=== PATIENT | female | born 1965 | race Caucasian/White ===

== ENCOUNTER → 2017-02-27 | Outpatient (CLI) | payer OTHER ==
--- NOTE | 2017-02-27 11:41 | MR ---
MR thoracic and lumbar spine without contrast HISTORY: Degeneration of the lumbar spine, thoracic spine Multiplanar multisequence imaging obtained through the thoracic lumbar spine correlated to prior thor acic spine dated 01/10/2016, prior lumbar spine MRI 09/16/2015 Thoracic spine MRI: There is a mild spinal curvature. Thoracic vertebral bodies show preserved height , alignment, and bone marrow signal. There is multilevel spondylosis. No significant foraminal encroa chment or significant central stenosis. Disc spaces are maintained. No sizable disc herniations. Face t arthropathy changes at the lower levels again noted. Thoracic cord signal is normal. Right paracentral disc protrusion effaces the anterior thecal sac at T12-L1 as on prior exam. The pre viously identified right lower lobe lung nodule is not seen with certainty on today's exam. There may be due to technique. IMPRESSION: Stable exam. Additional findings above Lumbar spine MRI: There is a spinal curvature as on prior exam. Alignment is stable. There is multile rita spondylosis with associated endplate discogenic marrow signal changes, loss of disc height and si gnal especially at L2-3, L1 to, multilevel Schmorl's node formation is present. The conus is at L1 sh ows an unremarkable appearance. L5-S1: Minimal posterior broad-based disc bulge does not show significant central canal stenosis. The re is facet arthropathy with hypertrophy ligamentum flavum causing some lateral recess stenosis. No d efinite foraminal encroachment. L4-5: Facet arthropathy with hypertrophy of ligamentum flavum with associated broad-based posterior d isc bulge results in moderate to severe central canal stenosis as on prior exam, circumferential exte nsion of endplate disc complex results in bilateral foraminal encroachment right greater than left. L3-4: Minimal retrolisthesis L3-4 with associated broad-based disc bulge results in some mild effacem ent of the anterior thecal sac as on prior exam, no significant foraminal encroachment. L2-3: Mild retrolisthesis grade 1 as on prior exam is accompanied with broad-based disc bulge causing mild anterior mass effect on the thecal sac. On mild central stenosis. L1-2: Posterior broad-based disc bulge causes mild anterior mass effect on the thecal sac. No signifi cant foraminal encroachment or central stenosis T12-L1: Right posterior paracentral disc bulge causes minimal anterior mass effect on the thecal sac. IMPRESSION: Essentially stable degenerative disc disease and facet arthropathy, spinal stenosis most on delayed L4-5. Marrow signal changes at the inferior plate L1 have resolved compatible with healed fracture.
== END ==
LOC: RADMRIMAIN 09:57
PROVIDERS: ATTEND Neurological Surgery
DX: M48.06 Spinal stenosis, lumbar region (principal); M51.36 Other intervertebral disc degeneration, lumbar region; M46.86 Other specified inflammatory spondylopathies, lumbar region; M51.34 Other intervertebral disc degeneration, thoracic region
CPT/HCPCS: 72146; 72148

== ENCOUNTER → 2017-02-27 | Outpatient (CLI) | payer OTHER ==
--- NOTE | 2017-02-27 10:19 | CT ---
EXAMINATION TYPE: CT chest w con DATE OF EXAM: 02/27/2017 COMPARISON: Prior chest CT exams August 28, 2016 and November 26, 2015. HISTORY: Rt Pulmonary Nodule CT DLP: 336.4 mGycm. Automated Exposure Control for Dose Reduction was Utilized. TECHNIQUE: CT scan of the thorax is performed following with IV Contrast, patient injected with 100 mL of Omnipaque 300. FINDINGS: LUNGS: There is stable 8 x 6 mm nodule posterior right lung base on axial image 53 unchanged in size and appearance from January 2016. No new nodules or masses are evident. There is no pleural effusion or pneumothorax seen. The tracheobronchial tree is patent. MEDIASTINUM: There are no greater than 1 cm hilar or mediastinal lymph nodes. No pericardial effusi on is seen. OTHER: Slight low dense thickening left adrenal gland favors benign hyperplasia and is stable. Mild m ultilevel spurring in thoracic spine is redemonstrated. IMPRESSION: Stable 8 x 6 mm right basilar pulmonary nodule. No new nodules are evident. Consider or o btain repeat CT in 6-12 months time as per modified Fleischner Society recommendations.
--- NOTE | 2017-02-27 11:23 | XR ---
Flexion and extension cervical spine views HISTORY: Cervical spondylosis, postop 2 views of the cervical spine is submitted and correlated to previous exam 09/19/2016 Flexion and extension views show stable alignment, postop changes are again noted. IMPRESSION: Stable postoperative findings.
== END ==
LOC: RADCTMAIN 09:09
PROVIDERS: ATTEND Family Medicine
DX: R91.1 Solitary pulmonary nodule (principal); M47.812 Spondylosis without myelopathy or radiculopathy, cervical region; Z98.890 Other specified postprocedural states
CPT/HCPCS: 72052; 71260; Q9967

== ENCOUNTER → 2017-10-13 | Outpatient (CLI) | payer OTHER ==
--- NOTE | 2017-10-14 16:34 | XR ---
EXAMINATION TYPE: XR cervical spine limited DATE OF EXAM: 10/13/2017 COMPARISON: NONE HISTORY: 52-year-old female follow-up post cervical surgery TECHNIQUE: 4 views FINDINGS: Post surgical changes of C5-C6 and C6-C7 intervertebral disc prostheses. Endplate spondylosis above a t C4-C5 and scattered facet arthropathy. Alignment is maintained and there is no evidence for dynamic subluxation on flexion and extension. IMPRESSION: C5-C6 and C6-C7 intervertebral disc prosthesis. Alignment normal and unchanged. No evidence for dynam ic subluxation.
== END | disposition home or self-care (01) ==
LOC: RADMRIMAIN 11:59
PROVIDERS: ATTEND Neurological Surgery
DX: M50.922 Unspecified cervical disc disorder at C5-C6 level (principal); Z98.890 Other specified postprocedural states
CPT/HCPCS: 72040

== ENCOUNTER → 2018-04-13 | Outpatient (CLI) | payer OTHER ==
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
--- NOTE | 2018-04-15 08:51 | XR ---
EXAMINATION TYPE: XR cervical spine w flex/ext DATE OF EXAM: 04/13/2018 COMPARISON: NONE HISTORY: Postsurgical changes TECHNIQUE:Six views are submitted including flexion and extension lateral views. FINDINGS: The odontoid is intact. There are no compression deformities. The prevertebral soft tissue structur es are within normal limits. Postsurgical changes are stable. Hypertrophic and degenerative changes seen at C3-4 and C4-C5 and C7-T1. Loss of the normal cervical lordosis is stable. Multilevel facet arthropathy seen. Alignment stable upon flexion. Extension views demonstrate slight retrolisthesis of C2 on C3, C3 on C4, relative to the neutral and flexion views. IMPRESSION: 1. Stable postsurgical changes. 2. Multilevel hypertrophic and degenerative changes.
== END | disposition home or self-care (01) ==
LOC: RADMRIMAIN 11:45
PROVIDERS: ATTEND Neurological Surgery
DX: M48.061 Spinal stenosis, lumbar region without neurogenic claudication (principal); M51.26 Other intervertebral disc displacement, lumbar region; M47.816 Spondylosis without myelopathy or radiculopathy, lumbar region; M48.8X6 Other specified spondylopathies, lumbar region; M53.82 Other specified dorsopathies, cervical region; Z98.890 Other specified postprocedural states
CPT/HCPCS: 72052; 72148

== ENCOUNTER → 2018-05-28 | Outpatient (CLI) | payer OTHER ==
--- NOTE | 2018-05-30 14:14 | MM ---
Reason for exam: screening (asymptomatic). Last mammogram was performed 2 years and 1 month ago. History: Patient is postmenopausal and is nulliparous. Excisional biopsy of the left breast. Took hormonal contraceptives for 12 years beginning at age 16. Physical Findings: A clinical breast exam by your physician is recommended on an annual basis and results should be correlated with mammographic findings. MG Screening Mammo w CAD Bilateral CC and MLO view(s) were taken. Prior study comparison: April 14, 2016, right breast MG diagnostic mammo RT w CAD. August 09, 2015, bilateral MG 3d screening mammo w/cad. There are scattered fibroglandular densities. Finding: There is a 5 mm equal density (isodense), circumscribed mass located 3 cm from the nipple in the lower quadrant of the right breast on MLO view. New finding since April 14, 2016 and August 09, 2015. ASSESSMENT: Incomplete: need additional imaging evaluation, BI-RAD 0 RECOMMENDATION: Special view mammogram of the right breast. If lesion persists on supplemental views, image directed ultrasound is recommended. [facility] will attempt to contact patient to return for supplemental views and ultrasound if indicated.
== END | disposition home or self-care (01) ==
LOC: RADMAMWWP 10:49
PROVIDERS: ATTEND Family Medicine
DX: Z12.31 Encounter for screening mammogram for malignant neoplasm of breast (principal)
CPT/HCPCS: 77067

== ENCOUNTER → 2018-06-07 | Outpatient (CLI) | payer OTHER ==
--- NOTE | 2018-06-10 08:49 | MM ---
Reason for exam: additional evaluation requested from abnormal screening. Last mammogram was performed less than 1 month ago. History: Patient is postmenopausal and is nulliparous. Excisional biopsy of the left breast. Took hormonal contraceptives for 12 years beginning at age 16. Physical Findings: Nurse did not find any significant physical abnormalities on exam. MG Work Up Mamm w CAD RT ML and spot compression MLO view(s) were taken of the right breast. Prior study comparison: May 28, 2018, bilateral MG screening mammo w CAD. April 14, 2016, right breast MG diagnostic mammo RT w CAD. The breast tissue is heterogeneously dense. This may lower the sensitivity of mammography. Finding: There is a persistent 7 mm equal density (isodense), lobulated mass located 3 cm from the nipple in the lower quadrant, anterior position of the right breast. These results were verbally communicated with the patient and result sheet given to the patient on 06/07/18. ASSESSMENT: Incomplete: need additional imaging evaluation, BI-RAD 0 RECOMMENDATION: Ultrasound of the right breast.
--- NOTE | 2018-06-10 08:54 | USB ---
Reason for exam: additional evaluation requested from abnormal screening. History: Patient is postmenopausal and is nulliparous. Excisional biopsy of the left breast. Took hormonal contraceptives for 12 years beginning at age 16. US Breast Workup Limited RT Right limited breast ultrasound including focal area of concern, retroareolar and axilla demonstrates a 0.6 x 0.4 x 0.7cm cystic cluster at 6 o'clock, a 0.4 x 0.3 x 0.6cm cystic cluster at 6 o'clock and a 0.5 x 0.3 x 0.4cm cystic lesion at 7 o'clock. These results were verbally communicated with the patient and result sheet given to the patient on 06/07/18. ASSESSMENT: Probably benign, BI-RAD 3 RECOMMENDATION: Follow-up diagnostic mammogram and ultrasound of the right breast in 6 months.
== END | disposition home or self-care (01) ==
LOC: RADMAMWWP 13:43
PROVIDERS: ATTEND Family Medicine
DX: R92.8 Other abnormal and inconclusive findings on diagnostic imaging of breast (principal)
CPT/HCPCS: 77065

== ENCOUNTER → 2019-06-16 | Outpatient (CLI) | payer OTHER ==
--- NOTE | 2019-06-17 09:27 | MM ---
Reason for exam: screening (asymptomatic). Last mammogram was performed 1 year ago. History: Patient is postmenopausal and is nulliparous. Excisional biopsy of the left breast. Took hormonal contraceptives for 12 years beginning at age 16. Physical Findings: A clinical breast exam by your physician is recommended on an annual basis and results should be correlated with mammographic findings. MG Screening Mammo w CAD Bilateral CC and MLO view(s) were taken. Prior study comparison: June 07, 2018, right breast MG work up mamm w CAD RT. May 28, 2018, bilateral MG screening mammo w CAD. The breast tissue is heterogeneously dense. This may lower the sensitivity of mammography. There are two masses on the right increased in density in the upper inner quadrant and lower inner quadrant at middle depth. New left upper outer quadrant focal asymmetry at middle depth. ASSESSMENT: Incomplete: need additional imaging evaluation, BI-RAD 0 RECOMMENDATION: Ultrasound of both breasts. [facility] will attempt to contact patient to return for ultrasound.
== END | disposition home or self-care (01) ==
LOC: RADMAMWWP 12:15
PROVIDERS: ATTEND Family Medicine
DX: Z12.31 Encounter for screening mammogram for malignant neoplasm of breast (principal)
CPT/HCPCS: 77067

== ENCOUNTER → 2019-07-03 | Outpatient (CLI) | payer OTHER ==
--- NOTE | 2019-07-03 11:51 | USB ---
Reason for exam: additional evaluation requested from abnormal screening. History: Patient is postmenopausal and is nulliparous. Excisional biopsy of the left breast. Took hormonal contraceptives for 12 years beginning at age 16. Physical Findings: Nurse Summary: palpable lump x 2, nodular (nurse kp). US Breast Workup Limited JESSICA Right limited breast ultrasound including focal area of concern, retroareolar and axilla demonstrates a 5 x 5 x 4mm irregular, hypoechoic lesion at 1 o'clock, a 11 x 9 x 8mm oval, solid lesion at 1 o'clock for which a biopsy is advised, a 3 x 3 x 5mm oval, cystic lesion at 6 o'clock, a 5 x 4 x 6mm oval, cystic lesion at 7 o'clock and a 5 x 4 x 5mm oval, cystic lesion at 8 o'clock. Left limited breast ultrasound including focal area of concern, retroareolar and axilla demonstrates a 5 x 4 x 5mm oval, cystic lesion at 1 o'clock. These results were verbally communicated with the patient and result sheet given to the patient on 07/03/19. ASSESSMENT: Suspicious, BI-RAD 4 RECOMMENDATION: Ultrasound core biopsy of the right breast. Called Dr. Barboza with mammographic findings and has scheduled an appointment for the patient for 07/24/19 at 10:[address] Montoya. Biopsy scheduled for 07/16/19. PRELIMINARY REPORT CALLED AND FAXED TO DR. MONTOYA ON 07/03/19.
== END | disposition home or self-care (01) ==
LOC: RADUSWWP 09:24
PROVIDERS: ATTEND Family Medicine
DX: R92.8 Other abnormal and inconclusive findings on diagnostic imaging of breast (principal)

== ENCOUNTER → 2019-07-16 | Day surgery (SDC) | payer OTHER ==
[2019-07-16 07:36] VITALS: RESP 16
[2019-07-16 09:39] VITALS: BP 127/85; PULSE 72; TEMP 97.7
--- NOTE | 2019-07-16 15:58 | USB ---
EXAMINATION TYPE: US biopsy breast VAD RT DATE OF EXAM: 07/16/2019 CLINICAL HISTORY: R92.8 PREV ABN MAMMO.. TECHNIQUE: Ultrasound guided vaccuum assisted core biopsy of right breast. COMPARISON: NONE FINDINGS: The ultrasound guided core biopsy procedure was explained to the patient. The risks, benefits, alternatives were discussed. An informed consent was then obtained. Timeout was performed. The patient was placed in supine positioning for imaging and for the procedure. The overlying skin was prepped with betadine and sterilely draped in usual sterile fashion. Lidocaine 1% was used as anesthetic into the skin and deeper breast tissue up to area of concern in the breast. A small skin marcela was made with surgical scalpel. There appear to be to nearly adjacent sites. However the approach would not allow both sides to be identified within the [id number]. A lateral from the same entrance site approach to each lesion was then performed. Site A: Under ultrasound guidance, a 12-gauge vacuum assisted biopsy device was used to obtain multiple core samples. A biopsy clip was left in lesion. Site B: Under ultrasound guidance, a 12-gauge vacuum assisted biopsy device was used to obtain multiple core samples. A biopsy clip was left in lesion. Good hemostasis was obtained with direct pressure. Discharge instructions were discussed with the patient. The patient will follow up with the referring physician for results. Postprocedure mammogram: The patient was transferred to mammography for physician ordered post procedure mammogram for clip placement verification. The clips are in the expected region of the biopsy. The patient tolerated the procedure well without any immediate complication. The patient was discharged to home in stable condition. IMPRESSION: 1. Successful ultrasound guided biopsy right breast at 2 adjacent sites. Recommendations: 1. Recommendations are pending pathology results. Pathology Results: Benign A. RIGHT BREAST AT ONE O'CLOCK, SITE A, NEEDLE CORE BIOPSIES: Fibrocystic spectrum changes in benign breast parenchyma. B. RIGHT BREAST AT ONE O'CLOCK, SITE B, NEEDLE CORE BIOPSIES: Fibrocystic spectrum changes in benign breast with focal intraductal mineralizations. Recommendation Follow up ultrasound of the right breast in 6 months. ANA
--- NOTE | 2019-07-17 08:22 | MM ---
Reason for exam: additional evaluation requested from abnormal screening. Last mammogram was performed 1 month ago. History: Patient is postmenopausal and is nulliparous. Excisional biopsy of the left breast. Took hormonal contraceptives for 12 years beginning at age 16. MG Diagnostic Mammo RT Wo CAD CC and ML view(s) were taken of the right breast. Prior study comparison: June 16, 2019, bilateral MG screening mammo w CAD. June 07, 2018, right breast MG work up mamm w CAD RT. ASSESSMENT: Post procedure mammogram for marker placement RECOMMENDATION: Ultrasound of the right breast in 6 months. PENDING PATHOLOGY RESULTS.
== END ==
LOC: RADUSWWP 06:53
PROVIDERS: ATTEND Surgery
DX: N60.11 Diffuse cystic mastopathy of right breast (principal); Z78.0 Asymptomatic menopausal state
CPT/HCPCS: 88305; 77065; 19083; 19084; A4648; J2001

== ENCOUNTER 2019-07-22 11:38 | Day surgery (SDC) | payer OTHER ==
[2019-07-22] MEDS ORDERED: LACTATED RINGERS 1,000 ML IV SCH (11:54)
[2019-07-22] MEDS ORDERED: LIDOCAINE 1% 20 ML VIAL (10MG/ML) FOR IV START INTRADERMA PRN (11:54)
[2019-07-22 11:59] VITALS: TEMP 97.9
[2019-07-22] MEDS ORDERED: PROPOFOL 10 MG/ML 20 ML VIAL IV ONE (12:43)
--- NOTE | 2019-07-22 13:41 | P.PCN ---
Date of Procedure: 07/22/19 Description of Procedure: BRIEF HISTORY: Patient is a 54-year-old pleasant female scheduled for an elective colonoscopy as a part of evaluation after positive Cologard. Denies any change in bowel habits, abdominal pain, blood per rectum or family history of colon cancer. No prior colonoscopies reported. PROCEDURE PERFORMED: Colonoscopy with polypectomy. PREOPERATIVE DIAGNOSIS: Positive Cologard, no prior colonoscopies reported. ESTIMATED BLOOD LOSS: Minimal. IV sedation per Anesthesia. PROCEDURE: After informed consent was obtained, the patient, was brought into the endoscopy unit. IV sedation was administered by Anesthesia under continuous monitoring. Digital rectal examination was normal. Initially the Olympus CF-190 flexible video colonoscope was then inserted in the rectum and advanced to the rectum however the patient had a tortuous sigmoid and at this time the scope was exchanged for a pediatric colonoscope which was then inserted into the rectum and , gradually advanced into the cecum without any difficulty. Careful examination was performed as the scope was gradually being withdrawn. Ileocecal valve and the appendiceal orifice were visualized and appeared normal. Prep was excellent. Mucosa of the cecum, ascending colon, transverse colon, descending colon, sigmoid colon, and rectum appeared normal. Multiple diminutive to small polyps removed with cold forcep polypectomy from the sigmoid colon measuring 2 mm, from the descending colon measuring 3 and 4 mm, from the cecum measuring 2 mm, from the transverse colon measuring 3 mm and from the splenic flexure measuring 3 mm. A few scattered diverticula noted in the sigmoid colon. Retroflexion was performed in the rectum and no lesions were seen. The patient tolerated the procedure well. IMPRESSION: 6 diminutive to small polyps measuring from 2 mm in size to 4 mm in size removed from the colon with cold forcep polypectomy (please see report for location and size). Mild sigmoid diverticulosis. RECOMMENDATIONS: Findings of this examination were discussed with the patient and her . Okay to resume diet. Okay to resume medications. Anticipate repeat colonoscopy in 3 years pending pathology from polypectomy. Await pathology from polypectomies.
[2019-07-22 13:57] VITALS: PULSE 72
[2019-07-22 14:16] VITALS: BP 142/85; RESP 16
== END 2019-07-22 14:33 | disposition home or self-care (01) ==
LOC: ORWHC2ENDO 11:38
PROVIDERS: ATTEND Internal Medicine
DX: D12.0 Benign neoplasm of cecum (principal); D12.4 Benign neoplasm of descending colon; D12.3 Benign neoplasm of transverse colon; D12.5 Benign neoplasm of sigmoid colon; K57.30 Diverticulosis of large intestine without perforation or abscess without bleeding; E07.9 Disorder of thyroid, unspecified; E78.5 Hyperlipidemia, unspecified; Z88.5 Allergy status to narcotic agent; Z79.890 Hormone replacement therapy; Z79.899 Other long term (current) drug therapy; Z87.891 Personal history of nicotine dependence; Z98.890 Other specified postprocedural states
CPT/HCPCS: 81025; 88305; 45380; J2704

== ENCOUNTER → 2019-07-25 | Outpatient (CLI) | payer OTHER ==
--- NOTE | 2019-07-25 12:25 | XR ---
EXAMINATION TYPE: XR cervical spine limited DATE OF EXAM: 07/25/2019 COMPARISON: NONE HISTORY: Postop cervical spine surgery TECHNIQUE: 2 views submitted FINDINGS: Degenerative disc disease and spurring C4-5 and C3-C4. Postsurgical changes C5-6 and C6-C7 appears in near-anatomic alignment. Facet arthropathy at C5-6 and C6-C7. IMPRESSION: Postsurgical change
== END | disposition home or self-care (01) ==
LOC: RADXRMAIN 11:59
PROVIDERS: ATTEND Neurological Surgery
DX: Z09 Encounter for follow-up examination after completed treatment for conditions other than malignant neoplasm (principal); Z98.890 Other specified postprocedural states
CPT/HCPCS: 72040

== ENCOUNTER → 2020-04-07 | Outpatient (CLI) | payer OTHER ==
--- NOTE | 2020-04-07 10:39 | USB ---
Reason for exam: follow-up at short interval from prior study. History: Patient is postmenopausal and is nulliparous. Benign US biopsy breast VAD RT of the right breast, July 16, 2019. Benign US biopsy breast add'l VAD RT of the right breast, July 16, 2019. Excisional biopsy of the left breast. Took hormonal contraceptives for 12 years beginning at age 16. Physical Findings: Nurse did not find any significant physical abnormalities on exam. US Breast Limited RT Technologist: Allyson Fuentes Right limited breast ultrasound including focal area of concern, retroareolar and axilla demonstrates a 0.8 x 0.6 x 0.5cm lesion at 1 o'clock and a 0.5 x 0.6 x 0.4cm lesion at 1 o'clock. These results were verbally communicated with the patient and result sheet given to the patient on 04/07/20. ASSESSMENT: Probably benign, BI-RAD 3 RECOMMENDATION: Follow-up diagnostic mammogram of both breasts in 2 months. Back on schedule for May 2020. Ultrasound of the right breast in 6 months.
== END | disposition home or self-care (01) ==
LOC: RADUSWWP 09:45
PROVIDERS: ATTEND Surgery
DX: R92.8 Other abnormal and inconclusive findings on diagnostic imaging of breast (principal)

== ENCOUNTER → 2020-06-04 | Outpatient (CLI) | payer OTHER ==
--- NOTE | 2020-06-07 08:09 | MM ---
Reason for exam: additional evaluation requested from prior study. Last mammogram was performed 11 months ago. History: Patient is postmenopausal and is nulliparous. Benign US biopsy breast VAD RT of the right breast, July 16, 2019. Benign US biopsy breast add'l VAD RT of the right breast, July 16, 2019. Excisional biopsy of the left breast. Took hormonal contraceptives for 12 years beginning at age 16. Physical Findings: Nurse did not find any significant physical abnormalities on exam. MG Diagnostic Mammo w CAD JESSICA Bilateral CC and MLO view(s) were taken. Prior study comparison: July 16, 2019, right breast MG diagnostic mammo RT wo CAD. June 16, 2019, bilateral MG screening mammo w CAD. There are scattered fibroglandular densities. No significant new findings when compared with previous films. These results were verbally communicated with the patient and result sheet given to the patient on 06/04/20. ASSESSMENT: Benign, BI-RAD 2 RECOMMENDATION: Routine screening mammogram of both breasts in 1 year.
== END | disposition home or self-care (01) ==
LOC: RADMAMWWP 14:21
PROVIDERS: ATTEND Surgery
DX: R92.8 Other abnormal and inconclusive findings on diagnostic imaging of breast (principal)
CPT/HCPCS: 77066

== ENCOUNTER → 2020-08-20 | Outpatient (CLI) | payer OTHER ==
--- NOTE | 2020-08-20 14:21 | XR ---
EXAMINATION TYPE: XR cervical spine w flex/ext DATE OF EXAM: 08/20/2020 TECHNIQUE: Frontal, lateral neutral/flexion/extension, oblique, swimmers, and open mouth view of the cervical spine are obtained. HISTORY: Z98.890 History of surgical procedure on cervical. History of 2 discs repaired 4-5 years ag o. COMPARISON: 07/25/2019 cervical spine radiograph FINDINGS: The cervical spine is visualized in its entirety from C1 thru the top of T1 level. There a re redemonstrated disc prostheses at C5-C6 and C6-C7. No evidence of dynamic subluxation on flexion o r extension views. There is redemonstrated disc space narrowing and osteophytic spurring at C4-C5. Fa cet arthropathy with varying degrees of neural foraminal bony encroachment. No acute fracture or disl ocation. The pre-vertebral soft tissue appears within normal limits. The atlantoaxial relationship an d base of the dens is within normal limits on the open mouth view. IMPRESSION: Intervertebral disc prostheses at C5-C6 and C6-C7. No evidence of dynamic subluxation on flexion or e xtension views.
== END | disposition home or self-care (01) ==
LOC: RADXRMAIN 13:54
PROVIDERS: ATTEND Neurological Surgery
DX: M50.222 Other cervical disc displacement at C5-C6 level (principal)
CPT/HCPCS: 72052

== ENCOUNTER → 2020-10-11 | Outpatient (CLI) | payer OTHER ==
--- NOTE | 2020-10-11 11:03 | USB ---
Reason for exam: additional evaluation requested from prior study. History: Patient is postmenopausal and is nulliparous. Benign US biopsy breast VAD RT of the right breast, July 16, 2019. Benign US biopsy breast add'l VAD RT of the right breast, July 16, 2019. Excisional biopsy of the left breast. Took hormonal contraceptives for 12 years beginning at age 16. Physical Findings: Nurse did not find any significant physical abnormalities on exam. US Breast Limited RT Right limited breast ultrasound including focal area of concern, retroareolar and axilla demonstrates a 0.7 x 0.7 x 0.6cm and 0.5 x 0.5 x 0.3cm vague echogenic, hypoechoic lesions at 1 o'clock corresponding to prior biopsy sites, unchanged from 04/07/20, a 0.8 x 1.1 x 0.6cm lymph node at the axilla and duct ectasia at the posterior nipple. These results were verbally communicated with the patient and result sheet given to the patient on 10/11/20. ASSESSMENT: Benign, BI-RAD 2 RECOMMENDATION: Routine screening mammogram of both breasts in 8 months. Back on schedule for May 2021.
== END | disposition home or self-care (01) ==
LOC: RADUSWWP 08:56
PROVIDERS: ATTEND Surgery
DX: R92.8 Other abnormal and inconclusive findings on diagnostic imaging of breast (principal)

== ENCOUNTER → 2021-07-22 | Outpatient (CLI) | payer OTHER ==
--- NOTE | 2021-07-25 13:59 | MM ---
Reason for exam: screening (asymptomatic). Last mammogram was performed 1 year and 2 months ago. History: Patient is postmenopausal and is nulliparous. Benign US biopsy breast VAD RT of the right breast, July 16, 2019. Benign US biopsy breast add'l VAD RT of the right breast, July 16, 2019. Excisional biopsy of the left breast. Took hormonal contraceptives for 12 years beginning at age 16. Physical Findings: A clinical breast exam by your physician is recommended on an annual basis and results should be correlated with mammographic findings. MG Screening Mammo w CAD Bilateral CC and MLO view(s) were taken. Prior study comparison: June 04, 2020, bilateral MG diagnostic mammo w CAD JESSICA. April 07, 2020, right breast US breast limited RT. July 16, 2019, right breast MG diagnostic mammo RT wo CAD. June 16, 2019, bilateral MG screening mammo w CAD. May 28, 2018, bilateral MG screening mammo w CAD. There are scattered fibroglandular densities. Previous mammotome biopsy in the right breast x 2. There is chronic nodularity bilaterally. Regional punctate calcifications on the left associated with an upper outer quadrant focal asymmetry are unchanged. No significant changes when compared with prior studies. ASSESSMENT: Benign, BI-RAD 2 RECOMMENDATION: Routine screening mammogram of both breasts in 1 year. Patient should continue monthly self breast exams. A negative report should not preclude additional follow up of suspicious palpable abnormalities.
== END | disposition home or self-care (01) ==
LOC: RADMAMWWP 13:20
PROVIDERS: ATTEND Surgery
DX: Z12.31 Encounter for screening mammogram for malignant neoplasm of breast (principal); Z78.0 Asymptomatic menopausal state
CPT/HCPCS: 77067

== ENCOUNTER → 2023-01-23 | Outpatient (CLI) | payer OTHER ==
--- NOTE | 2023-01-24 09:39 | MM ---
Reason for Exam: Screening (asymptomatic). Last mammogram was performed 1 year(s) and 7 month(s) ago. Patient History: Menarche at age 14. Patient has no children. Postmenopausal. Hormonal Contraceptives for 12 years from age 16 until age 28. Excisional Biopsy on the Left side. 07/16/2019, Benign Core Biopsy on the right side. 07/16/2019, Benign Core Biopsy on the right side. Risk Values: Nuria 5 year model risk: 2.1%. NCI Lifetime model risk: 13.1%. Prior Study Comparison: 07/16/2019 Right Diagnostic Mammogram, [facility]. 06/04/2020 Bilateral Diagnostic Mammogram, [facility]. 07/22/2021 Bilateral Screening Mammogram, [facility]. Tissue Density: The breast tissue is heterogeneously dense. This may lower the sensitivity of mammography. Findings: Analyzed By CAD. There are 2 biopsy clips in the right breast redemonstrated. There are grouped benign-appearing dystrophic calcifications in the right breast anteriorly redemonstrated. Benign-appearing right axillary lymph nodes are redemonstrated. There is no suspicious group of microcalcifications or new suspicious mass in either breast. Overall Assessment: Benign, BI-RAD 2 Management: Screening Mammogram of both breasts in 1 year. . Patient should continue monthly self-breast exams. A clinical breast exam by your physician is recommended on an annual basis. This exam should not preclude additional follow-up of suspicious palpable abnormalities. Note on Nuria scores and lifetime risk: 1. A Nuria score greater than 3% is considered moderate risk. If this is the case, consider specialist referral to assess eligibility for a risk reducing agent. 2. If overall lifetime risk for the development of breast cancer is 20% or higher, the patient may qualify for future screening with alternating mammogram and breast MRI. Electronically signed and approved by: Aleksander Watson M.D.
== END | disposition home or self-care (01) ==
LOC: RADMAMWWP 09:47
PROVIDERS: ATTEND Family Medicine
DX: Z12.31 Encounter for screening mammogram for malignant neoplasm of breast (principal); Z78.0 Asymptomatic menopausal state
CPT/HCPCS: 77067

== ENCOUNTER → 2023-06-14 | Outpatient (CLI) | payer OTHER ==
--- NOTE | 2023-06-14 09:11 | US ---
EXAMINATION TYPE: US pelvis complete transvag DATE OF EXAM: 06/14/2023 COMPARISON: NONE CLINICAL INDICATION: Female, 58 years old with history of R22.2 LOCALIZED SWELLING, MASS AND LUMP, TR UNK; Swelling/pain RLQ since February. Patient states she had cells removed from her cervix at age 21. G0 . TECHNIQUE: Transvaginal (TV) and Transabdominal (TA) . Transabdominal sonographic images of the pel vis were acquired. Transvaginal sonographic images were medically necessary to better assess the fol lowing anatomy: ovaries, endometrium. Date of LMP: 12 years ago EXAM MEASUREMENTS: Uterus: 5.7 x 4.3 x 3.7 cm Endometrial Stripe: 0.38 cm Right Ovary: Not seen Left Ovary: 2.4 x 1.2 x 1.4 cm 1. Uterus: Anteverted Heterogeneous. Complex area seen in cervix: 0.4 x 0.5 x 0.5 cm. Hypoechoic/heterogeneous lesion seen left uterus: 2.7 x 2.7 x 2.8 cm. 2. Endometrium: 0.38 cm. 3. Right Ovary: Not seen 4. Left Ovary: Appears wnl 5. Bilateral Adnexa: Appear wnl 6. Posterior cul-de-sac: Appears wnl IMPRESSION: 1. No evidence of ovarian torsion or adnexal mass. 2. No evidence of endometrial thickening. 3. Uterine fibroid. 4. Complex area and within the cervical region may represent an area of calcification. May also repre sent a complex nabothian cyst.
--- NOTE | 2023-06-14 09:16 | US ---
EXAMINATION TYPE: US abdomen complete DATE OF EXAM: 06/14/2023 COMPARISON: NONE CLINICAL INDICATION: Female, 58 years old with history of R22.2 LOCALIZED SWELLING, MASS AND LUMP, TR UNK; Pain/swelling within RLQ. Patient unsure if she strained the area when doing yoga. TECHNIQUE: Multiple sonographic images of the abdomen are obtained. FINDINGS: EXAM MEASUREMENTS: Liver Length: 15.6 cm Gallbladder Wall: 0.26 cm CBD: 0.53 cm Spleen: Not seen Right Kidney: 11.1 x 4.5 x 4.5 cm Left Kidney: 10.6 x 5.0 x 4.8 cm EXCEL DEVELOPER NOTES: Limited due to overlying bowel gas. Pancreas: Tail was not well seen. Liver: Appears coarse in echotexture. Gallbladder: Appears wnl Evidence for sonographic Calvin's sign: No CBD: Portions seen appear wnl Spleen: Not seen Right Kidney: No hydronephrosis or masses seen Left Kidney: No hydronephrosis or masses seen Upper IVC: Appears wnl Abd Aorta: Appears wnl, Iliacs were obscured. No obvious abnormalities seen at patient's area of concern within RLQ. IMPRESSION: Unremarkable abdominal ultrasound.
== END | disposition home or self-care (01) ==
LOC: RADUSWWP 07:36
PROVIDERS: ATTEND Family Medicine
DX: D25.9 Leiomyoma of uterus, unspecified (principal)
CPT/HCPCS: 76700; 76830; 76856

== ENCOUNTER → 2024-01-14 | Outpatient (CLI) | payer OTHER ==
--- NOTE | 2024-01-18 10:09 | CT ---
EXAMINATION TYPE: CT chest wo con CT DLP: 528 mGycm, Automated exposure control for dose reduction was used. DATE OF EXAM: 01/14/2024 1:40 PM COMPARISON: Chest radiograph from same day. Multiple CTs of the chest with most recent on . CLINICAL INDICATION:Female, 58 years old with history of R911.1 solitary pulmonary nodule; PHH, f/u n odules TECHNIQUE: Multiple axial images were obtained through the chest. Sagittal and coronal reformats were created for review. Contrast used: mL of (None if empty) Oral contrast used: (None if empty) FINDINGS: LUNGS/ PLEURA: A 7.3 mm nodule of the posterior right lower lobe is stable compared to thousand 2017. The nodule is identified on image 50 series 4 The lung parenchyma appears otherwise unremarkable. AIRWAY: Patent and unremarkable. HEART: Size within normal limits. MEDIASTINUM: No gross evidence of adenopathy. VASCULATURE: No aortic aneurysm. MUSCULOSKELETAL: No acute osseous abnormalities SOFT TISSUES/LYMPH NODES: Unremarkable. LOWER NECK: No significant findings. UPPER ABDOMEN: No significant findings. IMPRESSION: Stable 7.3 mm nodule right lower lobe. Unchanged since 2017. high-risk patients: CT at 6-12 months, then CT at 18-24 months. Follow-up recommendations indicate no further follow-up for this patient Follow up recommendations for incidental pulmonary nodules, if there are any, are per [employer] or [employer]. https://radiopaedia.org/articles/oladpviicp-[email or web address]-[email or web address]?lang=us
== END | disposition home or self-care (01) ==
LOC: RADCTMAIN 12:59
PROVIDERS: ATTEND Family Medicine
DX: R91.1 Solitary pulmonary nodule (principal)
CPT/HCPCS: 71250

== ENCOUNTER → 2024-01-25 | Outpatient (CLI) | payer OTHER ==
--- NOTE | 2024-01-28 19:26 | MM ---
Reason for Exam: Screening (asymptomatic). Last screening mammogram was performed 12 month(s) ago. Patient History: Menarche at age 14. Patient has no children. Postmenopausal. Hormonal Contraceptives for 12 years from age 16 until age 28. Excisional Biopsy on the Left side. 07/16/2019, Benign Core Biopsy on the right side. 07/16/2019, Benign Core Biopsy on the right side. Risk Values: Nuria 5 year model risk: 2.1%. NCI Lifetime model risk: 12.8%. Prior Study Comparison: 06/04/2020 Bilateral Diagnostic Mammogram, [facility]. 07/22/2021 Bilateral Screening Mammogram, [facility]. 01/23/2023 Bilateral MG screening mammo w CAD, [facility]. Tissue Density: There are scattered areas of fibroglandular density. Findings: Analyzed By CAD. 2 mcg right breast from prior biopsies. Unchanged coarse calcifications on the right. Unchanged focal asymmetry left upper outer quadrant with some grouped punctate calcifications. There is no suspicious group of microcalcifications or new suspicious mass in either breast. Overall Assessment: Benign, BI-RAD 2 Management: Screening Mammogram of both breasts in 1 year. . Patient should continue monthly self-breast exams. A clinical breast exam by your physician is recommended on an annual basis. This exam should not preclude additional follow-up of suspicious palpable abnormalities. Note on Nuria scores and lifetime risk: 1. A Nuria score greater than 3% is considered moderate risk. If this is the case, consider specialist referral to assess eligibility for a risk reducing agent. 2. If overall lifetime risk for the development of breast cancer is 20% or higher, the patient may qualify for future screening with alternating mammogram and breast MRI. Electronically signed and approved by: Beverly Yang M.D. Radiologist
== END | disposition home or self-care (01) ==
LOC: RADMAMWWP 08:35
PROVIDERS: ATTEND Family Medicine
DX: Z12.31 Encounter for screening mammogram for malignant neoplasm of breast (principal); Z78.0 Asymptomatic menopausal state
CPT/HCPCS: 77063; 77067